=== PATIENT | female | born 1980 | race American Indian/Alaskan Native ===

== ENCOUNTER 2018-09-23 04:33 | Emergency (ER) | payer MEDICAID ==
[2018-09-23 04:51] VITALS: BP 128/76
[2018-09-23] MEDS ORDERED: TYLENOL PO ONE (04:54)
[2018-09-23] MEDS ORDERED: TYLENOL ONE (04:55)
[2018-09-23] MEDS ORDERED: MOTRIN PO ONE (05:26)
--- NOTE | 2018-09-23 05:32 | Emergency Department Report ---
- General Chief Complaint: Upper Respiratory Infection Stated Complaint: FLU SYMPTOMS Time Seen by Provider: 09/23/18 05:25 Source: patient Mode of arrival: Stretcher Limitations: No Limitations - History of Present Illness Initial Comments: 38-year-old -Maltese female comes to the emergency room reporting she has a headache cough runny nose and sore throat since Sunday. Patient denies any fever metastases to chills and admits to sick contact as well as smokes cigarettes. Patient reports that she's been taking [id number] extra strength Tylenol and Tylenol flu and cold. Patient reports that the last time she took Aleve was at 12:00 yesterday afternoon. She reports that her throat soreness is worse when she smokes cigarettes. Patient reports that she is currently on her menses. MD Complaint: sore throat, rhinorrhea -: days(s) (2) Severity scale (0 -10): 10 Quality: burning, sharp Consistency: constant Improves With: nothing Context: other (following an smoking cigarettes) Associated Symptoms: headache, rhinorrhea, sore throat Treatments Prior to Arrival: Acetaminophen, "cold medicine" - Related Data Previous Rx's Medication Instructions Recorded Last Taken Type Cetirizine HCl/Pseudoephedrine 1 each PO Q12H #20 tab.er.1209/23/18 Unknown Rx [Zyrtec-D Tablet] Ibuprofen [Motrin 600 MG tab] 600 mg PO Q8H PRN #30 tablet 09/23/18 Unknown Rx Allergies Allergy/AdvReac Type Severity Reaction Status Date / Time No Known Allergies Allergy Unverified 09/23/18 04:51 ED Review of Systems ROS: Stated complaint: FLU SYMPTOMS Other details as noted in HPI Constitutional: chills ENT: throat pain, other (rhinorrhea) Respiratory: cough Cardiovascular: denies: chest pain, palpitations Gastrointestinal: denies: abdominal pain, nausea, diarrhea Genitourinary: denies: urgency, dysuria, discharge ED Past Medical Hx - Past Medical History Previous Medical History?: Yes Additional medical history: Trach - Surgical History Past Surgical History?: No - Social History Smoking Status: Current Every Day Smoker Substance Use Type: None - Medications Home Medications: Home Medications Medication Instructions Recorded Confirmed Last Taken Type Cetirizine HCl/Pseudoephedrine 1 each PO Q12H #20 tab.er.1209/23/18 Unknown Rx [Zyrtec-D Tablet] Ibuprofen [Motrin 600 MG tab] 600 mg PO Q8H PRN #30 tablet 09/23/18 Unknown Rx ED Physical Exam - General Limitations: No Limitations General appearance: alert, in no apparent distress - Head Head exam: Present: atraumatic, normocephalic - Eye Eye exam: Present: EOMI - ENT ENT exam: Present: mucous membranes moist - Expanded ENT Exam Expanded Throat exam: Positive: tonsillomegaly. Negative: tonsillar erythema, tonsillar exudate - Respiratory Respiratory exam: Present: normal lung sounds bilaterally. Absent: respiratory distress - Cardiovascular Cardiovascular Exam: Present: regular rate, normal rhythm. Absent: systolic murmur, diastolic murmur, rubs, gallop - Neurological Exam Neurological exam: Present: alert, oriented X3 - Psychiatric Psychiatric exam: Present: normal affect, normal mood - Skin Skin exam: Present: warm, dry, intact, normal color. Absent: rash ED Course Vital Signs 09/23/18 04:44 Temperature 97.8 F Pulse Rate 85 Respiratory 18 Rate Blood Pressure 128/76 O2 Sat by Pulse 100 Oximetry Critical care attestation.: If time is entered above; I have spent that time in minutes in the direct care of this critically ill patient, excluding procedure time. ED Disposition Clinical Impression: Viral syndrome, Tobacco abuse Disposition: DC-01 TO HOME OR SELFCARE Is pt being admited?: No Does the pt Need Aspirin: No Condition: Stable Instructions: Viral Syndrome (ED), How to Stop Smoking (ED) Additional Instructions: Please take pain medication as prescribed. You can take epyq-wfm-vlsphan Claritin or Zyrtec's for your postnasal drip and cough. Prescriptions: Cetirizine HCl/Pseudoephedrine [Zyrtec-D Tablet] 1 each PO Q12H #20 tab.er.12h Ibuprofen [Motrin 600 MG tab] 600 mg PO Q8H PRN #30 tablet PRN Reason: Pain Referrals: PRIMARY CARE,MD [Primary Care Provider] - 3-5 Days Forms: Work/School Release Form(ED)
== END 2018-09-23 06:48 | disposition home or self-care (01) ==
LOC: ED 04:33
DX: B34.9 Viral infection, unspecified (principal); Z72.0 Tobacco use
CPT/HCPCS: 87400; 99283

== ENCOUNTER 2019-08-12 10:19 | Emergency (ER) | payer OTHER, MEDICAID ==
[2019-08-12 10:43] VITALS: BP 110/66
--- NOTE | 2019-08-12 12:22 | XRay Report ---
CHEST 2 VIEWS INDICATION: sob. COMPARISON: None. FINDINGS: Support devices: None. Heart: Within normal limits. Pulmonary vasculature: Normal. Lungs/pleura: Lungs are mildly hyperexpanded and hyperlucent. No airspace disease or pleural effusion . No pneumothorax. Additional findings: None. IMPRESSION: 1. COPD. 2. No pneumonia or CHF. Signer Name: Naun Brooke MD Signed: 08/12/2019 12:18 PM Workstation Name: [id number]
[2019-08-12] MEDS ORDERED: KETOROLAC 60 MG/2 ML INJ IM ONE (12:55)
[2019-08-12] MEDS ORDERED: oxyCODONE /ACETAMINOPHEN 5-325MG TAB PO ONE (12:56)
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
== END 2019-08-12 15:03 | disposition home or self-care (01) ==
LOC: ED 10:19
DX: S20.211A Contusion of right front wall of thorax, initial encounter (principal); F17.200 Nicotine dependence, unspecified, uncomplicated; Z79.899 Other long term (current) drug therapy; V89.2XXA Person injured in unspecified motor-vehicle accident, traffic, initial encounter; Y93.89 Activity, other specified; Y92.410 Unspecified street and highway as the place of occurrence of the external cause; Y99.8 Other external cause status
CPT/HCPCS: 71046; 71110; 96372; 99283; J1885

== ENCOUNTER 2022-04-10 12:49 | Emergency (ER) | payer MEDICAID, OTHER ==
[2022-04-10] MEDS ORDERED: dexAMETHasone 4 MG/ML VIAL IM ONE ×2 (13:55→18:00)
[2022-04-10] MEDS ORDERED: KETOROLAC 10 MG TAB PO ONE ×2 (13:55→18:00)
--- NOTE | 2022-04-10 13:59 | Emergency Department Report ---
ED Extremity Problem HPI - General Chief complaint: Extremity Injury, Lower Stated complaint: SWELLING BI KNEE/SHOULDER PAIN/ TEST Time Seen by Provider: 04/10/22 13:51 Source: patient Mode of arrival: Ambulatory Limitations: No Limitations - History of Present Illness Initial comments: 42-year-old black female with no past medical history presents to the emergency department for evaluation of bilateral knees, bilateral wrists, and right shoulder pain. She states that she has been having this pain intermittently for the last 2 months but the last few days it has been significantly worse. She denies any trauma or injury and states that she is concerned that she may have rheumatoid arthritis because she has a strong family history of RA. She states that she has not taken any medication for her pain. MD Complaint: extremity pain, extremity swelling -: Gradual, month(s) (2) Location: left, right, upper extremity (Bilateral wrists and right shoulder), knee History of Same: Yes -: No myalgia, Yes arthralgia, No fever, No associated dyspnea, No associated chest pain Radiation: none Severity scale (0 -10): 8 Quality: aching Consistency: constant Associated Symptoms: arthralgias. denies: chest pain, shortness of breath, fever, myalgias, rash - Related Data Previous Rx's Medication Instructions Recorded Last Taken Type Cetirizine HCl/Pseudoephedrine 1 each PO Q12H #20 tab.er.12h 09/23/18 Unknown Rx [Zyrtec-D Tablet] Ibuprofen [Motrin 600 MG tab] 600 mg PO Q8H PRN #30 tablet 09/23/18 Unknown Rx Acetaminophen/Codeine [Tylenol 1 tab PO Q8H PRN #6 tab 08/12/19 Unknown Rx /Codeine # 3 tab] Ibuprofen [Motrin 800 MG tab] 800 mg PO Q8HR PRN #21 tablet 08/12/19 Unknown Rx methOCARBAMOL [Robaxin TAB] 750 mg PO Q8H PRN #15 tablet 08/12/19 Unknown Rx methylPREDNISolone [Medrol 4MG 4 mg PO DAILY #1 pack 04/10/22 Unknown Rx DOSEPAK (21 tabs)] Allergies Allergy/AdvReac Type Severity Reaction Status Date / Time No Known Allergies Allergy Verified 08/12/19 10:32 ED Review of Systems ROS: Stated complaint: SWELLING BI KNEE/SHOULDER PAIN/ TEST Other details as noted in HPI Comment: All other systems reviewed and negative Constitutional: denies: chills, fever, malaise, weakness Eyes: denies: vision change ENT: denies: congestion Respiratory: denies: shortness of breath Cardiovascular: denies: chest pain, palpitations Gastrointestinal: denies: abdominal pain, nausea, vomiting Musculoskeletal: denies: back pain Skin: denies: rash Neurological: denies: headache, weakness ED Past Medical Hx - Past Medical History Additional medical history: Trach - Surgical History Additional Surgical History: trach - Social History Smoking Status: Current Every Day Smoker Substance Use Type: None - Medications Home Medications: Home Medications Medication Instructions Recorded Confirmed Last Taken Type Cetirizine HCl/Pseudoephedrine 1 each PO Q12H #20 tab.er.12h 09/23/18 Unknown Rx [Zyrtec-D Tablet] Ibuprofen [Motrin 600 MG tab] 600 mg PO Q8H PRN #30 tablet 09/23/18 Unknown Rx Acetaminophen/Codeine [Tylenol 1 tab PO Q8H PRN #6 tab 08/12/19 Unknown Rx /Codeine # 3 tab] Ibuprofen [Motrin 800 MG tab] 800 mg PO Q8HR PRN #21 tablet 08/12/19 Unknown Rx methOCARBAMOL [Robaxin TAB] 750 mg PO Q8H PRN #15 tablet 08/12/19 Unknown Rx methylPREDNISolone [Medrol 4MG 4 mg PO DAILY #1 pack 04/10/22 Unknown Rx DOSEPAK (21 tabs)] ED Physical Exam - General Limitations: No Limitations General appearance: alert, in no apparent distress - Head Head exam: Present: atraumatic, normocephalic - Eye Eye exam: Present: normal appearance. Absent: conjunctival injection - ENT ENT exam: Present: normal exam, normal orophraynx - Neck Neck exam: Present: normal inspection, full ROM. Absent: tenderness, lymphadenopathy - Respiratory Respiratory exam: Absent: respiratory distress, chest wall tenderness - Cardiovascular Cardiovascular Exam: Present: regular rate - GI/Abdominal GI/Abdominal exam: Present: soft. Absent: distended - Expanded Upper Extremity Exam Right Shoulder Exam: Present: tenderness, tenderness over AC joint. Absent: full ROM, swelling, abrasion, laceration, ecchymosis, deformity, crepidus, dislocation, erythema Forearm Wrist exam: Present: tenderness. Absent: full ROM, swelling, abrasion, laceration, ecchymosis, tenderness over anatomical snuff box Vascular: Present: normal capillary refill, radial pulse. Absent: vascular compromise, Pallo Left Forearm Wrist exam: Present: tenderness. Absent: swelling, abrasion, laceration, ecchymosis, tenderness over anatomical snuff box Vascular: Present: normal capillary refill, radial pulse. Absent: vascular compromise, Pallo - Expanded Lower Extremity Exam Left Knee exam: Present: full ROM, tenderness, swelling. Absent: abrasion, laceration, ecchymosis, deformity, crepidus, dislocation, erythema, effusion Lower Leg exam: Present: normal inspection Ankle exam: Present: normal inspection Foot/Toe exam: Present: normal inspection Neuro vascular tendon exam: Present: no vascular compromise. Absent: pulse deficit, abnormal cap refill, motor deficit, sensory deficit, extremity cold to touch, pallor Gait: Positive: observed and normal Right Knee exam: Present: normal inspection, full ROM, tenderness. Absent: swelling, abrasion, laceration, ecchymosis, deformity, crepidus, dislocation, erythema, effusion Lower Leg exam: Present: normal inspection Ankle exam: Present: normal inspection Foot/Toe exam: Present: normal inspection Neuro vascular tendon exam: Present: no vascular compromise. Absent: pulse deficit, abnormal cap refill, extremity cold to touch, pallor Gait: Positive: observed and normal - Back Exam Back exam: Present: normal inspection - Neurological Exam Neurological exam: Present: alert, oriented X3 - Psychiatric Psychiatric exam: Present: normal affect, normal mood - Skin Skin exam: Present: warm, dry, intact, normal color ED Course Vital Signs 04/10/22 04/10/22 13:50 17:11 Temperature 98.3 F 98.9 F Pulse Rate 77 87 Respiratory 14 15 Rate Blood Pressure 120/72 133/87 [Right] O2 Sat by Pulse 100 98 Oximetry ED Medical Decision Making - Medical Decision Making 42-year-old black female with no past medical history presents to the emergency department for evaluation of bilateral knees, bilateral wrists, and right shoulder pain. She states that she has been having this pain intermittently for the last 2 months but the last few days it has been significantly worse. She denies any trauma or injury and states that she is concerned that she may have rheumatoid arthritis because she has a strong family history of RA. She states that she has not taken any medication for her pain. Exam and symptoms most consistent arthralgias. Patient treated with Decadron 8 mg IM and Toradol 10 mg p.o. while in the emergency department and will be discharged home with Medrol Dosepak to take as directed. 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 She is advised to return to the emergency department as needed. She verbalizes understanding of and agreement with plan of care. Critical care attestation.: If time is entered above; I have spent that time in minutes in the direct care of this critically ill patient, excluding procedure time. ED Disposition Clinical Impression: Joint pain Qualifiers: Joint pain location: knee Laterality: bilateral Qualified Code(s): M25.561 - Pain in right knee Disposition: 01 HOME / SELF CARE / HOMELESS Is pt being admited?: No Does the pt Need Aspirin: No Condition: Stable Instructions: How to Use Cold Therapy, Ywuy-qo-Rfke, Musculoskeletal Pain, Joint Pain, Leip-gb-Kyra Additional Instructions: Take medications as prescribed. Follow-up with your primary care provider if no improvement or worsening symptoms. Return to the emergency department as needed. Prescriptions: methylPREDNISolone [Medrol 4MG DOSEPAK (21 tabs)] 4 mg PO DAILY #1 pack Referrals: JANEL CORREA MD [Referring] - 3-5 Days Forms: Work/School Release Form(ED) Time of Disposition: 13:59
[2022-04-10 17:12] VITALS: BP 133/87
== END 2022-04-10 17:11 | disposition home or self-care (01) ==
LOC: ED 12:49
DX: M25.50 Pain in unspecified joint (principal); F17.200 Nicotine dependence, unspecified, uncomplicated
CPT/HCPCS: 96372; 99282; J1100